=== PATIENT | male | born 1950 | race Caucasian/White ===

== ENCOUNTER 2025-01-30 06:21 | Inpatient (IN) | payer MEDICARE, OTHER ==
[~2025-01-30] VITALS: Ht 177.8 cm; Wt 81.6 kg
[2025-01-30] MEDS ORDERED: FENTANYL PF 250MCG/5ML AMPUL ONE (07:04)
[2025-01-30] MEDS ORDERED: ROCURONIUM BROMIDE 50 MG/5 ML ONE (07:05)
[2025-01-30] MEDS ORDERED: LIDOCAINE 2%-EPI 1:100,000 30 ML VIAL ONE (07:07)
[2025-01-30] MEDS ORDERED: VANCOMYCIN 1 GM VIAL ONE (07:07)
[2025-01-30] MEDS ORDERED: dexaMETHasone SOD PHOSPHATE 2 ML ONE (07:07)
[2025-01-30] MEDS ORDERED: LABETALOL HCL IV 100MG VIAL ONE (07:51)
[2025-01-30] MEDS ORDERED: ACETAMINOPHEN 325 MG TABLET PO PRN (13:30)
[2025-01-30] MEDS ORDERED: IV NS 0.9% 1,000 ML IV PRN (13:30)
[2025-01-30] MEDS ORDERED: ONDANSETRON HCL/PF 4 MG/2 ML VIAL IVP PRN (13:30)
[2025-01-30] MEDS ORDERED: HYDROMORPHONE INJ 2 MG/ML DISP.SYRIN IV PRN (13:30)
[2025-01-30] MEDS ORDERED: MAGNESIUM HYDROXIDE 30 ML UDC PO PRN (14:30)
[2025-01-30] MEDS ORDERED: MAG HYDROX/AL HYDROX/SIMETH 30 ML UDC PO PRN (14:30)
[2025-01-30] MEDS ORDERED: Z GUARD REMEDY 4 OZ OINT TP PRN (14:30)
[2025-01-30 16:00] VITALS: BP 137/77; TEMP 98.1; O2SAT 95
[2025-01-30] MEDS: VANCOMYCIN 1 GM in IV D5W 250ml IV SCH (18:08)
[2025-01-30 20:00] VITALS: BP 122/72; TEMP 97.9; O2SAT 94
== END 2025-01-30 20:52 | disposition left against medical advice (07) | DRG 141 ==
LOC: DS 06:21 → MED 11:32
PROVIDERS: ADMIT Nurse Practitioner Acute Care; ATTEND Nurse Practitioner Acute Care
PROC: 0NSR04Z Reposition Maxilla with Internal Fixation Device, Open Approach (ICD-10-PCS; 2025-01-30)
PROC: 0NST04Z Reposition Right Mandible with Internal Fixation Device, Open Approach (ICD-10-PCS; 2025-01-30)
PROC: 0NUV07Z Supplement Left Mandible with Autologous Tissue Substitute, Open Approach (ICD-10-PCS; 2025-01-30)
PROC: 0NUR07Z Supplement Maxilla with Autologous Tissue Substitute, Open Approach (ICD-10-PCS; 2025-01-30)
PROC: 0NUT07Z Supplement Right Mandible with Autologous Tissue Substitute, Open Approach (ICD-10-PCS; 2025-01-30)
PROC: 0N5R0ZZ Destruction of Maxilla, Open Approach (ICD-10-PCS; 2025-01-30)
PROC: 0N5V0ZZ Destruction of Left Mandible, Open Approach (ICD-10-PCS; 2025-01-30)
PROC: 0N5T0ZZ Destruction of Right Mandible, Open Approach (ICD-10-PCS; 2025-01-30)
PROC: 0NSV04Z Reposition Left Mandible with Internal Fixation Device, Open Approach (ICD-10-PCS; principal; 2025-01-30 07:30)
DX: S02.40DA Maxillary fracture, left side, initial encounter for closed fracture (principal); T81.83XA Persistent postprocedural fistula, initial encounter; M27.2 Inflammatory conditions of jaws; S02.40CA Maxillary fracture, right side, initial encounter for closed fracture; X58.XXXA Exposure to other specified factors, initial encounter; M27.49 Other cysts of jaw; S02.69XB Fracture of mandible of other specified site, initial encounter for open fracture; Y93.9 Activity, unspecified; Y92.009 Unspecified place in unspecified non-institutional (private) residence as the place of occurrence of the external cause; J32.0 Chronic maxillary sinusitis; D16.4 Benign neoplasm of bones of skull and face
CPT/HCPCS: 88305-TC; 88311-TC; 88312-TC; A4223; A4338; C1713; G0378; J0690; J1100; J2704; J3010; J3370; J3490; J7030; J7050; J7060

== ENCOUNTER 2025-06-06 08:04 | Inpatient (IN) | payer MEDICARE, OTHER ==
[~2025-06-06] VITALS: Ht 175.3 cm; Wt 86.6 kg
[2025-06-06] MEDS ORDERED: LIDOCAINE 2%-EPI 1:100,000 30 ML VIAL ONE (09:37)
[2025-06-06] MEDS ORDERED: VANCOMYCIN 1 GM VIAL ONE (09:38)
[2025-06-06] MEDS ORDERED: OXYMETAZOLINE HCL NASAL SPRAY 30 ML BOTTLE NS ONE (09:38)
[2025-06-06] MEDS ORDERED: dexaMETHasone SOD PHOSPHATE 1 ML ONE (09:38)
[2025-06-06] MEDS ORDERED: ROCURONIUM BROMIDE 50 MG/5 ML ONE (10:56)
[2025-06-06] MEDS ORDERED: ACETAMINOPHEN 325 MG TABLET PO PRN (12:30)
[2025-06-06] MEDS ORDERED: HYDROMORPHONE INJ 2 MG/ML DISP.SYRIN IV PRN (12:30)
[2025-06-06] MEDS ORDERED: ONDANSETRON HCL/PF 4 MG/2 ML VIAL IV PRN (12:30)
[2025-06-06] MEDS: IV NS 0.9% 1,000 ML IV PRN (14:30)
[2025-06-06] MEDS ORDERED: MAGNESIUM HYDROXIDE 30 ML UDC PO PRN (15:30)
[2025-06-06 20:00] VITALS: BP 149/84; TEMP 97.7; O2SAT 94
[2025-06-06] MEDS: VANCOMYCIN 1 GM in IV D5W 250ml IV SCH (22:38)
[2025-06-07 07:36] LABS: PLATELET COUNT (AUTO) 193 K/uL (150-450); RED BLOOD CELL COUNT(AUTO) 5.25 MIL/uL (4.5-6.0); RED CELL DISTRIBUTION WIDTH 14.1 % (11.5-15.0); WHITE BLOOD COUNT (AUTO) 8.9 K/uL (4.3-11.0)
[2025-06-07 08:00] VITALS: BP 144/79; TEMP 97.3; O2SAT 98
[2025-06-07 08:46] LABS: CALCIUM, SERUM 8.8 mg/dL (8.5-10.1); CREATININE 1.0 mg/dL (0.6-1.3); PHOSPHORUS 3.0 mg/dL (2.5-4.9); UREA NITROGEN, BLOOD 19.0 mg/dL (7-18)
[2025-06-07 08:59] LABS: SODIUM SERUM 139.0 mmol/L (136-145)
[2025-06-07] MEDS: POTASSIUM CHLORIDE 20 MEQ TAB.PRT.SR PO SCH (11:33)
[2025-06-07] MEDS: POTASSIUM CL. PREMIX PERIPHER. 50 ML IV SCH (11:34)
== END 2025-06-07 14:30 | disposition home or self-care (01) | DRG 496 ==
LOC: DS 08:04 → MED 13:01
PROVIDERS: ADMIT Nurse Practitioner Family; ATTEND Nurse Practitioner Family
PROC: 0N5V0ZZ Destruction of Left Mandible, Open Approach (ICD-10-PCS; 2025-06-06)
PROC: 0N5T0ZZ Destruction of Right Mandible, Open Approach (ICD-10-PCS; 2025-06-06)
PROC: 0NPW04Z Removal of Internal Fixation Device from Facial Bone, Open Approach (ICD-10-PCS; 2025-06-06)
PROC: 0N5R0ZZ Destruction of Maxilla, Open Approach (ICD-10-PCS; principal; 2025-06-06 09:55)
DX: T84.69XA Infection and inflammatory reaction due to internal fixation device of other site, initial encounter (principal); M87.9 Osteonecrosis, unspecified; Y83.8 Other surgical procedures as the cause of abnormal reaction of the patient, or of later complication, without mention of misadventure at the time of the procedure; Y92.009 Unspecified place in unspecified non-institutional (private) residence as the place of occurrence of the external cause; I10 Essential (primary) hypertension; E87.6 Hypokalemia; D16.5 Benign neoplasm of lower jaw bone; D16.4 Benign neoplasm of bones of skull and face; M60.9 Myositis, unspecified; M89.38 Hypertrophy of bone, other site
CPT/HCPCS: 36415; 80048-TC; 83735-TC; 84100-TC; 85025-TC; 88300-TC; 88305-TC; 88311-TC; A4217; A4223; A4338; G0378; J0461; J0690; J1100; J2704; J3373; J3480; J3490; J7030; J7060